=== PATIENT | female | born 1985 | race American Indian/Alaskan Native ===

== ENCOUNTER 2018-09-04 14:16 | Emergency (ER) | payer SELFPAY ==
--- NOTE | 2018-09-04 15:15 | Emergency Department Report ---
Chief Complaint: Sore Throat Stated Complaint: THROAT INFLAMMED Time Seen by Provider: 09/04/18 15:14 - HPI History of Present Illness: RX NONE PMH NONE PSH NONE LMP 2-23 MSE COMPLETED MSE screening note: Focused history and physical exam performed. Due to findings the following was ordered: ED Disposition for MSE Condition: Stable
[2018-09-04 15:23] VITALS: BP 132/79
--- NOTE | 2018-09-04 16:07 | Emergency Department Report ---
Minor Respiratory - HPI Chief Complaint: Sore Throat Stated Complaint: THROAT INFLAMMED Time Seen by Provider: 09/04/18 15:14 Duration: 3 Days Pain Location: Throat Severity: mild Minor Respiratory: Yes Sore Throat, Yes Able to Tolerate Fluids, No Rhinorrhea, No Ear Pain, No Cough, No Sick Contacts, No Hemoptysis, No Chest Pain, No Shortness of Breath, No Fever Other History: 33 YO FEMALE WITH SORE THROAT. DENIES FEVER. HERE WITH 2 CHILDREN WHO HAVE BEEN SICK ED Review of Systems ROS: Stated complaint: THROAT INFLAMMED Other details as noted in HPI Comment: All other systems reviewed and negative Constitutional: denies: chills, fever Eyes: denies: eye pain ENT: throat pain. denies: ear pain Respiratory: denies: cough Cardiovascular: denies: palpitations Endocrine: denies: intolerance to heat Gastrointestinal: denies: nausea Genitourinary: denies: dysuria Musculoskeletal: denies: back pain Skin: denies: lesions Neurological: denies: headache Psychiatric: denies: anxiety Hematological/Lymphatic: denies: easy bleeding ED Past Medical Hx - Past Medical History Previous Medical History?: No - Surgical History Past Surgical History?: No - Family History Family history: no significant - Social History Smoking Status: Never Smoker Substance Use Type: None - Medications Home Medications: Home Medications Medication Instructions Recorded Confirmed Last Taken Type Amoxicillin 500 mg PO BID #20 capsule 09/04/18 Unknown Rx Minor Respiratory Exam - Exam General: Vital signs noted. No distress. Alert and acting appropriately. HEENT: Yes Pharyngeal Erythema, Yes Moist Mucous Membranes, No Pharyngeal Exudates, No Rhinorrhea, No Conjuctival Injection, No Frontal Tenderness, No Maxillary Tenderness Ear: Neither TM Bulge, Neither TM Erythema, Neither EAC Pain, Neither EAC Discharge Neck: Yes Supple, No Adenopathy Lungs: Yes Good Air Exchange, No Wheezes, No Ronchi, No Stridor, No Cough, No Labored Respirations, No Retractions, No Use of Accessory Muscles, No Other Abnormal Lung Sounds Heart: Yes Regular, Yes Murmur Abdomen: Yes Normal Bowel Sounds, No Tenderness, No Peritoneal Signs Skin: No Rash, No Edema Neurologic: Alert and oriented, no deficits. Musculoskeletal: Unremarkable. ED Course Vital Signs 09/04/18 15:14 Temperature 98.7 F Pulse Rate 97 H Respiratory 16 Rate Blood Pressure 132/79 O2 Sat by Pulse 98 Oximetry ED Medical Decision Making - Medical Decision Making STREP POS DC HOME WITH DC POC Labs 09/04/18 Unknown Group A Strep Rapid Positive A - Differential Diagnosis RO STREP Critical care attestation.: If time is entered above; I have spent that time in minutes in the direct care of this critically ill patient, excluding procedure time. ED Disposition Clinical Impression: Strep pharyngitis Disposition: DC-01 TO HOME OR SELFCARE Is pt being admited?: No Does the pt Need Aspirin: No Condition: Stable Instructions: Pharyngitis (ED) Additional Instructions: HYDRATE WELL WITH WATER MEDS ORDERED MOTRIN OR TYLENOL FOR PAIN OR FEVER GOOD HANDWASHING FOLLOW UP PCP IF PERSISTS DIET TOLERATED Prescriptions: Amoxicillin 500 mg PO BID #20 capsule Referrals: NEAL BILLY MD [Primary Care Provider] - 3-5 Days Time of Disposition: 16:05
== END 2018-09-04 16:27 | disposition home or self-care (01) ==
LOC: ED 14:16
DX: J02.0 Streptococcal pharyngitis (principal)
CPT/HCPCS: 87430; 99283